=== PATIENT | male | born 1990 | race Caucasian/White ===

== ENCOUNTER 2017-01-30 15:06 | Emergency (ER) | payer SELFPAY ==
--- NOTE | 2017-01-30 15:48 | EDM.PDOCBH ---
ED HPI GENERAL MEDICAL PROBLEM - General Chief Complaint: Behavioral/Psych Stated Complaint: MENTAL HEALTH Time Seen by Provider: 01/30/17 15:30 Source of Information: Reports: Patient History Limitations: Reports: No Limitations - History of Present Illness INITIAL COMMENTS - FREE TEXT/NARRATIVE: History of present illness: [26 yr male comes in with police secondary to suicidal ideation and partial attempt. Patient has been struggling with chronic depression and drug addiction and he came to this area for employment after being clean dry sober for 4 months and the people he has met since being here are also heroin addicts. Patient indicated that he was sick of his life he will live like this anymore he decided he would be better served to hang himself, patient found a rope went to the neighbor's yard where there was a tree proceeded to make a noose and was about to hang himself when he decided to read a few versus from his Bible which subsequently made him decide that he should think some more about his decision. Patient began walking down the road with rope and hand.] Review of systems: As per history of present illness and below otherwise all systems reviewed and negative. Past medical history: As per history of present illness and as reviewed below otherwise noncontributory. Surgical history: As per history of present illness and as reviewed below otherwise noncontributory. Social history: No reported history of drug or alcohol abuse. Family history: As per history of present illness and as reviewed below otherwise noncontributory. Physical exam: HEENT: Atraumatic, normocephalic, pupils reactive, negative for conjunctival pallor or scleral icterus, mucous membranes moist, throat clear, neck supple, nontender, trachea midline. Lungs: Clear to auscultation, breath sounds equal bilaterally, chest nontender. Heart: S1S2, regular, negative for clicks, rubs, or JVD. Abdomen: Soft, nondistended, nontender. Negative for masses or hepatosplenomegaly. Negative for costovertebral tenderness. Pelvis: Stable nontender. Genitourinary: Deferred. Rectal: Deferred. Extremities: Atraumatic, negative for cords or calf pain. Neurovascular unremarkable. Neuro: Awake, alert, oriented. Cranial nerves II through XII unremarkable. Cerebellum unremarkable. Motor and sensory unremarkable throughout. Exam nonfocal. With Dr. Tompkins as well as Dr. Benton in the ER patient is accepted for ER/ER transfer for admission to the medical center. Patient is placed on a hold by nv. Diagnostics: [EKG, UA, urine drug screen, EtOH, salicylate, acetaminophen, TSH, T3, magnesium , CBC, CMP] Therapeutics: [] Impression: [#1 suicidal ideation with plan] Plan: [Transfer to [facility]] Definitive disposition and diagnosis as appropriate pending reevaluation and review of above. - Related Data Allergies Allergy/AdvReac Type Severity Reaction Status Date / Time No Known Allergies Allergy Verified 01/30/17 15:34 Home Meds: Home Meds . [No Known Home Meds] 01/30/17 [History] Past Medical History - Past Health History Medical/Surgical History: Denies Medical/Surgical History Social & Family History - Family History Family Medical History: Noncontributory - Tobacco Use Smoking Status *Q: Current Every Day Smoker Years of Tobacco use: 11 Packs/Tins Daily: 0.5 - Caffeine Use Caffeine Use: Reports: None - Recreational Drug Use Recreational Drug Use: Yes Drug Use in Last 12 Months: Yes Recreational Drug Type: Reports: Heroin ED ROS GENERAL - Review of Systems Review Of Systems: See Below (History of present illness) ED EXAM, BEHAVIORAL HEALTH - Physical Exam Exam: See Below (See history of present illness) COURSE, BEHAVIORAL HEALTH COMP - Course Vital Signs: Last Vital Signs Temp 36.5 C 01/30/17 16:39 Pulse 102 H 01/30/17 16:39 Resp 18 01/30/17 16:39 BP 124/75 01/30/17 16:39 Pulse Ox 96 01/30/17 16:39 Orders, Labs, Meds: Active Orders 24 hr Category Date Time Status EKG Documentation Completion [RC] STAT Care 01/30/17 15:43 Active ACETAMINOPHEN [CHEM] Stat Lab 01/30/17 15:49 Results COMPREHENSIVE METABOLIC PN,CMP [CHEM] Stat Lab 01/30/17 15:49 Results ETHANOL BLOOD MEDICAL [CHEM] Stat Lab 01/30/17 15:49 Results FREE T3 [REF] Stat Lab 01/30/17 15:49 Received MAGNESIUM [CHEM] Stat Lab 01/30/17 15:49 Results SALICYLATE [CHEM] Stat Lab 01/30/17 15:49 Results TSH [CHEM] Stat Lab 01/30/17 15:49 Results Laboratory Tests 01/30/17 01/30/17 01/30/17 Range/Units 15:49 15:49 15:55 WBC 7.54 (4.0-11.0) K/uL RBC 5.79 (4.50-5.90) M/uL Hgb 16.4 (13.0-17.0) g/dL Hct 46.7 (38.0-50.0) % MCV 80.7 (80.0-98.0) fL MCH 28.3 (27.0-32.0) pg MCHC 35.1 (31.0-37.0) g/dL RDW Std Deviation 38.7 (28.0-62.0) fl RDW Coeff of Jose Alfredo 13 (11.0-15.0) % Plt Count 266 (150-400) K/uL MPV 9.30 (7.40-12.00) fL Neut % (Auto) 45.8 L (48.0-80.0) % Lymph % (Auto) 42.3 H (16.0-40.0) % [place] % (Auto) 7.7 (0.0-15.0) % Eos % (Auto) 3.3 (0.0-7.0) % Baso % (Auto) 0.9 (0.0-1.5) % Neut # (Auto) 3.5 (1.4-5.7) K/uL Lymph # (Auto) 3.2 H (0.6-2.4) K/uL [place] # (Auto) 0.6 (0.0-0.8) K/uL Eos # (Auto) 0.3 (0.0-0.7) K/uL Baso # (Auto) 0.1 (0.0-0.1) K/uL Nucleated RBC % 0.0 /100WBC Nucleated RBCs # 0 K/uL Sodium 140 (136-146) mmol/L Potassium 4.0 (3.5-5.1) mmol/L Chloride 108 (98-110) mmol/L Carbon Dioxide 22 (21-31) mmol/L BUN 10 (6.0-23.0) mg/dL Creatinine 0.9 (0.6-1.5) mg/dL Est Cr Clr Drug Dosing 111.19 mL/min Estimated GFR (MDRD) > 60.0 ml/min Glucose 98 (60-110) mg/dL Calcium 10.0 (8.8-10.8) mg/dL Magnesium 1.7 (1.5-2.3) mEq/L Total Bilirubin 0.7 (0.1-1.5) mg/dL AST 17 (5-40) IU/L ALT 14 (8-54) IU/L Alkaline Phosphatase 96 (40-150) Total Protein 7.7 (6.0-8.0) g/dL Albumin 4.5 (3.5-5.0) g/dL Globulin 3.2 (2.0-3.5) g/dL Albumin/Globulin Ratio 1.4 (1.3-2.8) Urine Color Urine Appearance Urine pH (5.0-8.0) Ur Specific [place] (1.001-1.035) Urine Protein (NEGATIVE) mg/dL Urine Glucose (UA) (NEGATIVE) mg/dL Urine Ketones (NEGATIVE) mg/dL Urine Occult Blood (NEGATIVE) Urine Nitrite (NEGATIVE) Urine Bilirubin (NEGATIVE) Urine Ictotest Urine Urobilinogen (<2.0) EU/dL Ur Leukocyte Esterase (NEGATIVE) Urine RBC (0-2/HPF) Urine WBC (0-5/HPF) Ur Epithelial Cells (NONE-FEW) Urine Bacteria (NEGATIVE) Urine Mucus (NONE-MOD) Salicylates < 5.0 (0-20) mg/dL Urine Opiates Screen POSITIVE (NEGATIVE) Ur Oxycodone Screen NEGATIVE (NEGATIVE) Urine Methadone Screen NEGATIVE (NEGATIVE) Acetaminophen < 3.0 ug/mL Ur Barbiturates Screen NEGATIVE (NEGATIVE) Ur Phencyclidine Scrn NEGATIVE (NEGATIVE) Ur Amphetamine Screen POSITIVE (NEGATIVE) U Methamphetamines Scrn POSITIVE (NEGATIVE) U Benzodiazepines Scrn NEGATIVE (NEGATIVE) U Cocaine Metab Screen NEGATIVE (NEGATIVE) U Marijuana (THC) Screen POSITIVE (NEGATIVE) Ethyl Alcohol < 10.0 mg/dL 01/30/17 Range/Units 15:55 WBC (4.0-11.0) K/uL RBC (4.50-5.90) M/uL Hgb (13.0-17.0) g/dL Hct (38.0-50.0) % MCV (80.0-98.0) fL MCH (27.0-32.0) pg MCHC (31.0-37.0) g/dL RDW Std Deviation (28.0-62.0) fl RDW Coeff of Jose Alfredo (11.0-15.0) % Plt Count (150-400) K/uL MPV (7.40-12.00) fL Neut % (Auto) (48.0-80.0) % Lymph % (Auto) (16.0-40.0) % [place] % (Auto) (0.0-15.0) % Eos % (Auto) (0.0-7.0) % Baso % (Auto) (0.0-1.5) % Neut # (Auto) (1.4-5.7) K/uL Lymph # (Auto) (0.6-2.4) K/uL [place] # (Auto) (0.0-0.8) K/uL Eos # (Auto) (0.0-0.7) K/uL Baso # (Auto) (0.0-0.1) K/uL Nucleated RBC % /100WBC Nucleated RBCs # K/uL Sodium (136-146) mmol/L Potassium (3.5-5.1) mmol/L Chloride (98-110) mmol/L Carbon Dioxide (21-31) mmol/L BUN (6.0-23.0) mg/dL Creatinine (0.6-1.5) mg/dL Est Cr Clr Drug Dosing mL/min Estimated GFR (MDRD) ml/min Glucose (60-110) mg/dL Calcium (8.8-10.8) mg/dL Magnesium (1.5-2.3) mEq/L Total Bilirubin (0.1-1.5) mg/dL AST (5-40) IU/L ALT (8-54) IU/L Alkaline Phosphatase (40-150) Total Protein (6.0-8.0) g/dL Albumin (3.5-5.0) g/dL Globulin (2.0-3.5) g/dL Albumin/Globulin Ratio (1.3-2.8) Urine Color DARK YELLOW Urine Appearance CLEAR Urine pH 5.5 (5.0-8.0) Ur Specific [place] >= 1.030 (1.001-1.035) Urine Protein TRACE (NEGATIVE) mg/dL Urine Glucose (UA) NEGATIVE (NEGATIVE) mg/dL Urine Ketones TRACE H (NEGATIVE) mg/dL Urine Occult Blood NEGATIVE (NEGATIVE) Urine Nitrite NEGATIVE (NEGATIVE) Urine Bilirubin SMALL H (NEGATIVE) Urine Ictotest POSITIVE Urine Urobilinogen 1.0 (<2.0) EU/dL Ur Leukocyte Esterase NEGATIVE (NEGATIVE) Urine RBC NONE SEEN (0-2/HPF) Urine WBC RARE (0-5/HPF) Ur Epithelial Cells FEW (NONE-FEW) Urine Bacteria FEW (NEGATIVE) Urine Mucus MODERATE (NONE-MOD) Salicylates (0-20) mg/dL Urine Opiates Screen (NEGATIVE) Ur Oxycodone Screen (NEGATIVE) Urine Methadone Screen (NEGATIVE) Acetaminophen ug/mL Ur Barbiturates Screen (NEGATIVE) Ur Phencyclidine Scrn (NEGATIVE) Ur Amphetamine Screen (NEGATIVE) U Methamphetamines Scrn (NEGATIVE) U Benzodiazepines Scrn (NEGATIVE) U Cocaine Metab Screen (NEGATIVE) U Marijuana (THC) Screen (NEGATIVE) Ethyl Alcohol mg/dL Departure - Departure Time of Disposition: 16:55 Disposition: DC/Tfer to Psych Hosp/Unit [facility] Condition: Good Clinical Impression: Depression with suicidal ideation, Has access to planned means of suicide - Discharge Information Referrals: PCP,None [Primary Care Provider] - Forms: ED Department Discharge - My Orders Last 24 Hours: My Active Orders 01/30/17 15:43 EKG Documentation Completion [RC] STAT 01/30/17 15:49 ACETAMINOPHEN [CHEM] Stat COMPREHENSIVE METABOLIC PN,CMP [CHEM] Stat ETHANOL BLOOD MEDICAL [CHEM] Stat FREE T3 [REF] Stat MAGNESIUM [CHEM] Stat SALICYLATE [CHEM] Stat TSH [CHEM] Stat - Assessment/Plan Last 24 Hours: My Active Orders 01/30/17 15:43 EKG Documentation Completion [RC] STAT 01/30/17 15:49 ACETAMINOPHEN [CHEM] Stat COMPREHENSIVE METABOLIC PN,CMP [CHEM] Stat ETHANOL BLOOD MEDICAL [CHEM] Stat FREE T3 [REF] Stat MAGNESIUM [CHEM] Stat SALICYLATE [CHEM] Stat TSH [CHEM] Stat
[2017-01-30 16:25] LABS: ACETAMINOPHEN < 3.0 ug/mL; CHLORIDE,CL 108 mmol/L (98-110); SODIUM,NA 140 mmol/L (136-146)
[2017-01-30 16:39] VITALS: BP 124/75
== END 2017-01-30 18:05 ==
LOC: MW.ED 15:06
DX: F32.9 Major depressive disorder, single episode, unspecified (principal); R45.851 Suicidal ideations; F17.210 Nicotine dependence, cigarettes, uncomplicated
CPT/HCPCS: 80053; 80305; 81001; 83735; 84443; 84481; 85025; 93005; 99285; G0480; 36415; 99283